=== PATIENT | female | born 2000 | race Caucasian/White ===

== ENCOUNTER 2022-11-06 08:30 | Emergency (ER) | payer BC ==
[~2022-11-06] VITALS: Ht 170 cm; Wt 90.7 kg
[2022-11-06 08:38] VITALS: BP 128/89
[2022-11-06] MEDS ORDERED: TETANUS,DIPTH,PERTUSS P/F (BOOSTRIX) 0.5 ML VIAL IM ONE (09:00)
[2022-11-06] MEDS ORDERED: IBUPROFEN 600 MG (MOTRIN) TAB PO ONE (09:00)
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
[2022-11-06] MEDS ORDERED: HYDROcodone/APAP 7.5 MG/325 MG (LORTAB, LORCET PLUS) TABLET PO ONE (10:00)
[2022-11-06] MEDS ORDERED: DICL500C PO (11:10)
[2022-11-06] MEDS ORDERED: TRAM50TA3 PO (11:10)
== END 2022-11-06 11:20 | disposition home or self-care (01) ==
LOC: ER 08:35
DX: S62.662B Nondisplaced fracture of distal phalanx of right middle finger, initial encounter for open fracture (principal); Z23 Encounter for immunization; Z28.310 Unvaccinated for COVID-19; W23.0XXA Caught, crushed, jammed, or pinched between moving objects, initial encounter; Y92.810 Car as the place of occurrence of the external cause
CPT/HCPCS: 29130; 64450; A6223; 73140; 90715

== ENCOUNTER 2023-02-03 05:37 | Outpatient (CLI) | payer BC ==
[~2023-02-03] VITALS: Ht 170.1 cm; Wt 84.1 kg
[~2023-02-03 05:37] MED LIST: DICL500C PO; TRAM50TA3 PO
[2023-02-04] MEDS ORDERED: ACHD5005 PO (13:45)
== END 2023-02-03 12:33 | disposition home or self-care (01) ==
LOC: PREOP 05:37
PROVIDERS: ATTEND Obstetrics & Gynecology
DX: Z01.818 Encounter for other preprocedural examination (principal)

== ENCOUNTER 2023-02-04 10:16 | Day surgery (SDC) | payer BC ==
[2023-02-04] VITALS (14 sets, daily range): BP systolic 105–119; BP diastolic 71–81
[~2023-02-04] VITALS: Ht 170.1 cm; Wt 84.1 kg
[2023-02-04 11:05] LABS: BASOPHILS % (AUTO) 1 % (0-10); EOSINOPHILS # (AUTO) 0.1 10^3/uL (0.0-0.3); EOSINOPHILS % (AUTO) 2 % (0-10); HEMATOCRIT 42 % (35-52); HEMOGLOBIN 14.2 g/dL (11.5-16.0); LYMPHOCYTES # (AUTO) 1.5 10^3/uL (1.0-4.0); LYMPHOCYTES % (AUTO) 28 % (12-44); MEAN CORPUSCULAR HEMOGLOBIN 29 pg (25-34); MEAN CORPUSCULAR HGB CONC 34 g/dL (32-36); MEAN CORPUSCULAR VOLUME 86 fL (80-99); MONOCYTES # (AUTO) 0.5 10^3/uL (0.0-1.0); MONOCYTES % (AUTO) 9 % (0-12); NEUTROPHILS # (AUTO) 3.2 10^3/uL (1.8-7.8); NEUTROPHILS % (AUTO) 59 % (42-75); PLATELET COUNT 265 10^3/uL (130-400); WHITE BLOOD COUNT 5.3 10^3/uL (4.3-11.0)
[2023-02-04] MEDS: LACTATED RINGERS 1,000 ML IV SCH ×2 (11:06→13:15)
--- NOTE | 2023-02-04 11:21 | Progress Note-Pre Operative ---
Pre-Operative Progress Note Date of Available H&P: Feb 04, 2023 Date H&P Reviewed: Feb 04, 2023 Time H&P Reviewed: 11:20 History & Physical: H&P Reviewed, Patient Examed, No changes noted Pre-Operative Diagnosis: Endometrial polyps seen on sonohystogram LINA PAYTON DO Feb 04, 2023 11:21
--- NOTE | 2023-02-04 11:23 | Discharge Inst-Women's Service ---
Discharge Inst-Women's Serv Depart Medication/Instructions New, Converted or Re-Newed RX: Other (TAKE OTC NSAIDs PRN) Problems Reviewed?: Yes Consults/Follow Up Additional Follow Up: Yes Orders/Referrals Dr. Payton in 2-3 weeks Activity Activity: Activity as Tolerated Driving Instructions: No Driving for 1 Week NO SMOKING: NO SMOKING Nothing Inside Vagina: No Douching, No [place], No Tampons Diet Discharge Diet: No Restrictions Symptoms to Report to : Bleeding Excessive, Pain Increased, Fever Over 101 Degrees F, Vaginal Bleeding Increase, Questions/Concerns For Any Problems or Questions: Contact Your Physician LINA PAYTON DO Feb 04, 2023 11:23
[2023-02-04] MEDS ORDERED: D5 LR IV SOLUTION 1,000 ML IV SCH (11:30)
[2023-02-04] MEDS ORDERED: ONDANSETRON 4 MG/2 ML (SDV) Z0FRAN IVP PRN (11:30)
[2023-02-04] MEDS ORDERED: HYDROcodone/APAP 5 MG/325 MG (LORTAB) TAB PO PRN (11:30)
[2023-02-04] MEDS ORDERED: KETOROLAC 30 MG/ML VIAL IVP ONE (11:30)
[2023-02-04] MEDS ORDERED: BUPIVACAINE 0.25% 30 ML (SENSORCAINE) VIAL ONE (12:36)
[2023-02-04] MEDS ORDERED: fentaNYL INJ 100 MCG/2 ML AMP ONE (12:53)
[2023-02-04] MEDS ORDERED: proPOfol 200 MG/20 ML (DIPRIVAN) VIAL IV ONE (12:53)
[2023-02-04] MEDS ORDERED: LIDOCAINE PF 2% 5 ML (XYLOCAINE) VIAL ONE (12:53)
[2023-02-04] MEDS ORDERED: ONDANSETRON 4 MG/2 ML (SDV) Z0FRAN ONE (12:53)
[2023-02-04] MEDS ORDERED: MIDAZOLAM 2 MG/2 ML (VERSED) VIAL ONE (12:54)
[2023-02-04] MEDS ORDERED: BUPIVACAINE 0.25% 30 ML (SENSORCAINE) VIAL INJ ONE (13:19)
[2023-02-04] MEDS ORDERED: ACHD5005 PO (13:45)
--- NOTE | 2023-02-04 19:09 | OPERATIVE REPORT ---
DATE OF SERVICE: 02/04/2023 PREOPERATIVE DIAGNOSIS: A 22-year-old female with endometrial polyps noted on sonohysterogram. POSTOPERATIVE DIAGNOSES: A 22-year-old female with endometrial polyps noted on sonohysterogram. PROCEDURE: Hysteroscopic resection of endometrial polyps. SURGEON: Lina Payton DO ANESTHESIA: LMA general. ESTIMATED BLOOD LOSS: Minimal. URINE OUTPUT: 500 mL drained at the start of the procedure. FLUIDS: 800 mL lactated Ringer's solution. FINDINGS: Grossly normal-appearing external female genitalia with fluffy endometrial polypoid tissue appearing on hysteroscopic evaluation, SPECIMEN SENT: Hysteroscopic resection endometrial curettings. INDICATIONS FOR PROCEDURE: This is a 22-year-old female patient, who sought care with Reproductive Endocrinology. Her workup included an endometrial evaluation, which showed endometrial polyp on sonohysterogram. She proceeded to my office for evaluation and removal of these. Risks of hysteroscopic resection was discussed with the patient in detail and after all of her questions were answered, she was agreeable to proceed. Consent was obtained. The patient was taken to the operating room. OPERATIVE DESCRIPTION IN DETAIL: Once in the operating room, anesthesia was administered and found to be adequate, was placed in dorsal lithotomy position, prepped and draped in normal sterile fashion. Timeout was performed. A weighted speculum was inserted to the patient's vagina. Right angle retractor was used to visualize the cervix, was grasped at 12 o'clock position using a long Allis clamp. I then performed a paracervical block at 3 and 9 o'clock position on the cervix. Care was taken to aspirate for injecting 5 mL of 0.25% Marcaine injected into each site. I then gently sound the uterine cavity, depth was found to be approximately 8 cm. I then gently dilated the cervix using Hanks dilators to maximum dilatation approximately 8 mm, at which point I directed a hysteroscope through the cervix into the uterus and using normal saline and the true clear fluid management system, I am able to visualize endometrial cavity using normal saline. I used the resectoscope to trim back on multiple polypoid fragments that are protruding from the endometrial wall until a nice smooth uniform cavity is noted throughout the endometrium, at which point I slowly backed up the hysteroscope to ensure there was no other space occupying lesions in the uterus or cervix after which there was no active bleeding noted from the cervix. I removed all instruments from the patient's vagina. The patient tolerated the procedure well and was taken to recovery in stable condition. Lap and sponge counts were correct at the end of the procedure. Instrument counts correct as well. Job ID: [id number] DocumentID: [id number] Dictated Date: 02/04/2023 14:40:26 Stave Log Ripsaw Operator Date: 02/04/2023 19:07:00 Dictated By: LINA PAYTON DO
--- NOTE | 2023-02-05 13:29 | Anesthesia-General Post-Op ---
General Patient Condition Mental Status/LOC: Same as Preop Cardiovascular: Satisfactory Nausea/Vomiting: Absent Respiratory: Satisfactory Pain: Controlled Complications: Absent Post Op Complications Complications None Follow Up Care/Instructions Patient Instructions None needed. Anesthesia/Patient Condition Patient Condition Patient is doing well, no complaints, stable vital signs, no apparent adverse anesthesia problems. No complications reported per nursing. TONI MOBLEY CRNA Feb 05, 2023 13:29
== END 2023-02-04 15:04 | disposition home or self-care (01) ==
LOC: SDC 10:16
PROVIDERS: ATTEND Obstetrics & Gynecology
DX: N84.0 Polyp of corpus uteri (principal); E66.9 Obesity, unspecified; Z68.29 Body mass index [BMI] 29.0-29.9, adult
CPT/HCPCS: 36415; 84703; 85025; 86850; 86900; 86901; 87081; 88305

== ENCOUNTER → 2023-03-21 | Outpatient (CLI) | payer BC ==
[~2023-03-21] MED LIST changes: +ACHD5005 PO
== END ==
LOC: LAB 09:06
PROVIDERS: ATTEND Obstetrics & Gynecology Reproductive Endocrinology
DX: Z31.83 Encounter for assisted reproductive fertility procedure cycle (principal); N97.9 Female infertility, unspecified
CPT/HCPCS: 36415; 82670; 83001; 83002; 84144; 84443; 84702

== ENCOUNTER → 2023-03-26 | Outpatient (CLI) | payer BC | LOC: LAB 08:49 | PROVIDERS: ATTEND Obstetrics & Gynecology Reproductive Endocrinology | DX: Z31.49 Encounter for other procreative investigation and testing (principal) | CPT/HCPCS: 36415; 82670; 83002; 84144 ==

== ENCOUNTER → 2023-03-28 | Outpatient (CLI) | payer BC | LOC: LAB 08:43 | PROVIDERS: ATTEND Obstetrics & Gynecology Reproductive Endocrinology | DX: Z31.49 Encounter for other procreative investigation and testing (principal) | CPT/HCPCS: 36415; 82670; 83002; 84144 ==

== ENCOUNTER → 2023-03-31 | Outpatient (CLI) | payer BC | LOC: LAB 08:56 | PROVIDERS: ATTEND Obstetrics & Gynecology Reproductive Endocrinology | DX: Z31.83 Encounter for assisted reproductive fertility procedure cycle (principal) | CPT/HCPCS: 36415; 82670; 83002; 84144 ==

== ENCOUNTER → 2023-04-02 | Outpatient (CLI) | payer BC | LOC: LAB 07:07 | PROVIDERS: ATTEND Obstetrics & Gynecology Reproductive Endocrinology | DX: Z31.83 Encounter for assisted reproductive fertility procedure cycle (principal) | CPT/HCPCS: 36415; 82670; 83002; 84144 ==

== ENCOUNTER → 2023-04-14 | Outpatient (CLI) | payer BC | LOC: LAB 07:02 | PROVIDERS: ATTEND Obstetrics & Gynecology Reproductive Endocrinology | DX: Z31.49 Encounter for other procreative investigation and testing (principal) | CPT/HCPCS: 36415; 82670; 84144 ==

== ENCOUNTER → 2023-04-21 | Outpatient (CLI) | payer BC | LOC: LAB 07:05 | PROVIDERS: ATTEND Obstetrics & Gynecology Reproductive Endocrinology | DX: Z32.00 Encounter for pregnancy test, result unknown (principal) | CPT/HCPCS: 36415; 84144; 84702 ==

== ENCOUNTER → 2023-04-29 | Outpatient (CLI) | payer BC | LOC: LAB 11:17 | PROVIDERS: ATTEND Obstetrics & Gynecology Reproductive Endocrinology | DX: Z31.83 Encounter for assisted reproductive fertility procedure cycle (principal) | CPT/HCPCS: 36415; 82670; 83001; 83002; 84144; 84443; 84702 ==

== ENCOUNTER → 2023-05-05 | Outpatient (CLI) | payer BC | LOC: LAB 09:23 | PROVIDERS: ATTEND Obstetrics & Gynecology Reproductive Endocrinology | DX: Z13.83 Encounter for screening for respiratory disorder NEC (principal) | CPT/HCPCS: 36415; 82670; 83002; 84144 ==

== ENCOUNTER → 2023-05-16 | Outpatient (CLI) | payer BC | LOC: LAB 08:19 | PROVIDERS: ATTEND Obstetrics & Gynecology Reproductive Endocrinology | DX: Z31.49 Encounter for other procreative investigation and testing (principal) | CPT/HCPCS: 36415; 82670; 84144 ==

== ENCOUNTER 2023-07-01 05:28 | Outpatient (CLI) | payer BC ==
[~2023-07-01] VITALS: Ht 170.2 cm; Wt 86.8 kg
[2023-07-01] MEDS ORDERED: PNV-9 PO (15:17)
== END 2023-07-01 15:25 | disposition home or self-care (01) ==
LOC: PREOP 05:28
PROVIDERS: ATTEND Obstetrics & Gynecology
DX: Z01.818 Encounter for other preprocedural examination (principal)

== ENCOUNTER 2023-07-08 06:49 | Day surgery (SDC) | payer BC ==
[2023-07-08] VITALS (10 sets, daily range): BP systolic 106–134; BP diastolic 72–90
[~2023-07-08] VITALS: Ht 170.2 cm; Wt 86.8 kg
[~2023-07-08 06:49] MED LIST changes: +PNV-9 PO
--- NOTE | 2023-07-08 07:48 | History & Physical-Surgical ---
HPO-Surgical History of Present Illness Chief Complaint: Patient reports inability to achieve , and has chronic pain with periods and sometimes with intercourse Diagnosis/Surgical Indication: CPP, INFERTILITY Procedure: DIAGNOSTIC LAPAROSCOPY, CHROMOTUBATION, HYSTEROSCOPY, D & C Date of Surgery: Jul 08, 2023 Allergies and Home Medications Allergies Coded Allergies: cephalexin (Verified Allergy, Severe, HIVES, 07/01/23) Patient Home Medication List Home Medication List Reviewed: Yes Pnv 119/Iron Fum/Folic Acid ( 19 Tablet) 29 Mg Iron-1 Mg Tablet, 1 EACH PO DAILY, (Reported) Entered as Reported by: KELECHI FLOYD on 07/01/23 1517 Discontinued Medications Hydrocodone/Acetaminophen (Hydrocodone-Acetamin 5-325 mg) 5 Mg-325 Mg Tablet, 1 EA PO Q4H PRN for PAIN-MODERATE (5-7) Discontinued Reason: No Longer Taking Prescribed by: LINA PAYTON on 02/04/23 1345 Past Oskqdsk-Ptyczl-Yuhcbe Hx Patient Social History Alcohol Beverage of Choice: Rum, Wine 2nd Hand Smoke Exposure: No Recent Hopitalizations: No Immunizations Up To Date Tetanus Booster (TDap): Less than 5yrs Seasonal Allergies Seasonal Allergies: No Surgeries Yes (HYSTEROSCOPY) Appendectomy, Tonsillectomy Respiratory No Currently Using CPAP: No Currently Using BIPAP: No Cardiovascular No Neurological No Genitourinary Yes Kidney Infection, Kidney Stones Gastrointestinal No Musculoskeletal No Endocrine History of Endocrine Disorders: No HEENT History of HEENT Disorders: No Cancer No Psychosocial History of Psychiatric Problem: No Integumentary History of Skin or Integumenta: No Blood Transfusions History of Blood Disorders: No Adverse Reaction to a Blood Tr: No Exam Vital Signs Capillary Refill : General Appearance: Alert, Oriented X3 HEENT: Atraumatic Respiratory: Clear to Auscultation Cardiovascular: Regular Rate Abdominal: Normal Bowel Sounds Extremities: No Clubbing Skin: No Rashes Neuro: Normal Gait Psych/Mental Status: Mental Status NL Assessment/Plan Admission Diagnosis Diagnosis: 23 yo with CPP Infertility P: Diagnostic laparoscopy, chromotubation, hysteroscopy Admission Status: Other (Same Day Surgery) LINA PAYTON DO Jul 08, 2023 07:48
[2023-07-08 07:51] LABS: BASOPHILS # (AUTO) 0.1 10^3/uL (0.0-0.1); BASOPHILS % (AUTO) 1 % (0-10); EOSINOPHILS # (AUTO) 0.1 10^3/uL (0.0-0.3); EOSINOPHILS % (AUTO) 2 % (0-10); HEMATOCRIT 41 % (35-52); LYMPHOCYTES # (AUTO) 1.5 10^3/uL (1.0-4.0); LYMPHOCYTES % (AUTO) 28 % (12-44); MEAN CORPUSCULAR HEMOGLOBIN 30 pg (25-34); MEAN CORPUSCULAR HGB CONC 34 g/dL (32-36); MEAN CORPUSCULAR VOLUME 89 fL (80-99); MEAN PLATELET VOLUME 9.8 fL (9.0-12.2); MONOCYTES # (AUTO) 0.4 10^3/uL (0.0-1.0); MONOCYTES % (AUTO) 8 % (0-12); NEUTROPHILS # (AUTO) 3.2 10^3/uL (1.8-7.8); NEUTROPHILS % (AUTO) 60 % (42-75); PLATELET COUNT 265 10^3/uL (130-400); WHITE BLOOD COUNT 5.3 10^3/uL (4.3-11.0)
[2023-07-08] MEDS ORDERED: ACHD5005 PO (07:51)
[2023-07-08] MEDS ORDERED: DOCU-143 PO (07:51)
[2023-07-08] MEDS ORDERED: IBUP-1773 PO (07:51)
--- NOTE | 2023-07-08 07:51 | Discharge Inst-Women's Service ---
Discharge Inst-Women's Serv Depart Medication/Instructions New, Converted or Re-Newed RX: Transmitted to Pharmacy Problems Reviewed?: Yes Consults/Follow Up Additional Follow Up: Yes Orders/Referrals Dr. Sanders in 7-10 days Activity Activity: Activity as Tolerated Driving Instructions: No Driving for 1 Week NO SMOKING: NO SMOKING Nothing Inside Vagina: No Douching, No [place], No Tampons Diet Discharge Diet: No Restrictions Symptoms to Report to : Bleeding Excessive, Pain Increased, Fever Over 101 Degrees F, Vaginal Bleeding Increase, Questions/Concerns For Any Problems or Questions: Contact Your Physician Skin/Wound Care Infection Signs and Symptoms: Increased Redness, Foul Odor of Wound, Increased Drainage, Skin Itchy or Has a Rash, Increased Swelling, Temperature Above 101 F Operative Area Clean and Dry: Keep Incision Clean/Dry Stitches/Silvino/Dermabond: Dermabond, Care of Stitches Bathing Instructions: LINA Cummings DO Jul 08, 2023 07:51
[2023-07-08] MEDS ORDERED: LACTATED RINGERS 1,000 ML IV PRN (08:00)
[2023-07-08] MEDS ORDERED: ONDANSETRON 4 MG/2 ML (SDV) Z0FRAN IVP PRN ×2 (08:00→10:15)
[2023-07-08] MEDS ORDERED: HYDROcodone/ACETAMINOPHEN 5 MG/325 MG TABLET PO PRN (08:00)
[2023-07-08] MEDS ORDERED: D5 LR 1,000 ML IV SOLN 1,000 ML IV SCH (08:00)
[2023-07-08] MEDS ORDERED: KETOROLAC INJ 30 MG/ML VIAL IVP ONE (08:00)
[2023-07-08] MEDS ORDERED: BUPIVACAINE 0.25% 30 ML VIAL ONE (08:25)
[2023-07-08] MEDS ORDERED: VASOPRESSIN INJECTION 20 UNIT/ML VIAL ONE (08:28)
[2023-07-08] MEDS ORDERED: NS (IVPB) 100 ML 0 ML ONE (08:28)
[2023-07-08] MEDS ORDERED: proPOfol 200 MG/20 ML (DIPRIVAN) VIAL IV ONE (08:38)
[2023-07-08] MEDS ORDERED: ONDANSETRON 4 MG/2 ML (SDV) Z0FRAN ONE (08:38)
[2023-07-08] MEDS ORDERED: fentaNYL INJECTION 100 MCG/2 ML VIAL ONE ×2 (08:38→09:48)
[2023-07-08] MEDS ORDERED: dexAMETHasone INJ 10 MG/ML 1 ML VIAL ONE (08:38)
[2023-07-08] MEDS ORDERED: LIDOCAINE PF 2% 5 ML VIAL ONE (08:38)
[2023-07-08] MEDS ORDERED: GLYCOPYRROLATE INJ 0.2 MG/ML 2 ML VIAL ONE (08:38)
[2023-07-08] MEDS ORDERED: MIDAZOLAM INJ 2 MG/2 ML VIAL ONE (08:38)
[2023-07-08] MEDS ORDERED: BUPIVACAINE 0.25% 30 ML VIAL INJ ONE (10:01)
[2023-07-08] MEDS ORDERED: KETOROLAC INJ 30 MG/ML VIAL ONE (10:03)
[2023-07-08] MEDS ORDERED: HYDROmorphone INJECTION 2 MG/ML VIAL IV ONE (10:15)
[2023-07-08] MEDS ORDERED: morphine INJ 10 MG/ML 1ML (SYR OR VIAL) IVP ONE (10:15)
[2023-07-08] MEDS ORDERED: SEVOFLURANE (ULTANE) 15 ML INHAL SOLN ONE (10:26)
[2023-07-08] MEDS ORDERED: ROCURONIUM 50 MG/5 ML (ZEMURON) VIAL IV ONE (10:27)
[2023-07-08] MEDS ORDERED: NEOSTIGMINE (BLOXIVERZ ) 1 MG/1ML 10 ML VIAL ONE (10:27)
--- NOTE | 2023-07-08 10:41 | Anesthesia-General Post-Op ---
General Patient Condition Mental Status/LOC: Same as Preop Cardiovascular: Satisfactory Nausea/Vomiting: Absent Respiratory: Satisfactory Pain: Controlled Complications: Absent Post Op Complications Complications None Follow Up Care/Instructions Patient Instructions None needed. Anesthesia/Patient Condition Patient Condition Patient was awake in PACU and doing well. She was ready to return to [facility] with no complaints, stable vital signs, no apparent adverse anesthesia problems. No complications reported per nursing. KURT BOUDREAUX DO Jul 08, 2023 10:40
--- NOTE | 2023-07-08 20:13 | OPERATIVE REPORT ---
DATE OF SERVICE: 07/08/2023 PREOPERATIVE DIAGNOSES: 1. A 23-year-old female with chronic pelvic pain. 2. Dysmenorrhea. 3. Infertility. POSTOPERATIVE DIAGNOSES: 1. A 23-year-old female with chronic pelvic pain. 2. Dysmenorrhea. 3. Infertility. PROCEDURE: Dilation and curettage with hysteroscopy, diagnostic laparoscopy and chromotubation. SURGEON: Lina Payton DO ANESTHESIA: General endotracheal. ESTIMATED BLOOD LOSS: Minimal. URINE OUTPUT: 200 mL clear at the end of the procedure. FLUIDS: 1300 mL lactated Ringer's solution. FINDINGS: Grossly normal-appearing uterus, cervix, external female genitalia with grossly normal-appearing bilateral ovaries, bilaterally grossly normal appearing fallopian tubes with lack of drainage of methylene blue dye on chromotubation. SPECIMEN SENT: Endometrial curettings. INDICATIONS FOR PROCEDURE: This 23-year-old female was a patient who had sought care in my office as a recommendation from her reserve officer to have a diagnostic laparoscopy was performed and hysteroscopy due to inability to conceive. She underwent two embryo transfers without either one of these taking. They wished to rule out any anatomic measures that could be causing ongoing issues. Risks of the procedure were discussed with the patient in detail in the preoperative area including risk of bleeding, infection, damage to surrounding structures including but not limited to bowel, bladder, ureter, kidneys, possible need for reoperation, postoperative complications that may occur, recovery timeframe, risk from anesthesia and even . After everything was discussed with the patient in detail, she was agreeable to proceed. Consent was obtained. The patient was taken to the operating room. OPERATIVE DESCRIPTION IN DETAIL: Once in the operating room, anesthesia was administered and found to be adequate, was placed in dorsal lithotomy position, prepped and draped in normal sterile fashion. A timeout was performed. Irby catheter was placed using sterile technique. A weighted speculum was inserted into the patient's vagina. Ring retractor was utilized. Cervix was grasped at 12 o'clock position using a long Allis clamp. I then performed a paracervical block at 3 and 9 o'clock positions on the cervix. Care was taken to aspirate for injecting 5 mL of 0.25% Marcaine injected into each site. I then gently sounded the uterine cavity and that was found to be 8 cm. I then gently dilated the cervix using Hanks dilators to maximum dilatation of 8 mm, at which point I advanced the hysteroscope into the uterus and using the Fashion Playtes fluid management system and normal saline as my visual medium, I am able to visualize the endometrial cavity. There is no protrusions or abnormalities noted. There appears to be decidualized endometrial tissue without any defect or abnormality noted. Bilateral tubal ostia are noted as well and appeared to be patent. I then slowly removed the hysteroscope, documenting with photos as I come out. I then performed a gentle curettage of the endometrium, collected a small amount of endometrial tissue. This was sent as endometrial curettings. I then placed a CHARMAINE uterine manipulator to a depth of 8 cm, deploying the balloon within the uterus. I removed all the instruments from the patient's vagina, performed change of gloves. I turned my attention to the abdomen where subcostally at the midclavicular line, I introduced the Veress needle through the incision until intraperitoneal placement was confirmed using a saline drop test. An opening pressure of 4 mmHg was noted. I proceeded with CO2 insufflation to max pressure of 10 mmHg, at which point I made a 5 mm infraumbilical incision with a knife and direct a blunt laparoscopic trocar through the incision and ensured proper intraperitoneal placement was confirmed using the laparoscope. There was no evidence of damage from entry site. A brief scan of the upper abdominal anatomy appears to be grossly normal with the very site having no evidence of damage noted. The Veress was removed at that point. I then had the patient placed in steep Trendelenburg where I am able to visualize all my pelvic anatomy as defined in my findings above. Grossly, the uterus, ovaries and fallopian tubes appear to be normal. I then proceeded with chromotubation using methylene blue. I used 50 mL in my first application and there is no spillage. There is some change in color of the uterus to slightly blue on the 2nd administration of 50 mL of methylene blue. I can see in the proximal portion of the fallopian tube that is isthmic that there is a small amount of color change noted, but it acutely and abruptly stopped and there was no spillage from the ampulla or distal margin of the fallopian tube. This is noted bilaterally to be blocked without any dye spillage. Finding that I have administered 100 mL of fluid into the uterus, I stopped injecting dye at this point, due to the significant strain on the uterus and the amount of pressure I am having to place in order to press the dye. At this point, I copiously irrigated the pelvis using normal saline to collect any excessive fluid or bleeding noted from the trocar placement. I then had the patient taken out of steep Trendelenburg, where I removed the infraumbilical trocar after releasing the remainder of the CO2 insufflation. The skin was reapproximated using Dermabond. This was done with both sides, both the puncture and incision site. The Kronner uterine manipulator was removed at that point and Irby catheter was removed as well. The patient tolerated the procedure well and was taken to recovery area in stable condition. Lap and sponge counts were correct at the end of the procedure. Instrument counts were correct as well. Job ID: [id number] DocumentID: [id number] Dictated Date: 07/08/2023 12:47:24 It Data Architect Date: 07/08/2023 20:10:00 Dictated By: LINA APYTON DO
== END 2023-07-08 12:45 | disposition home or self-care (01) ==
LOC: SDC 06:49
PROVIDERS: ATTEND Obstetrics & Gynecology
DX: N97.9 Female infertility, unspecified (principal); N94.6 Dysmenorrhea, unspecified; G89.29 Other chronic pain; R10.2 Pelvic and perineal pain; Z28.310 Unvaccinated for COVID-19
CPT/HCPCS: 36415; 84703; 85025; 86850; 86900; 86901; 87081; 88305